=== PATIENT | male | born 1995 | race Caucasian/White ===

== ENCOUNTER 2016-08-25 16:59 | Emergency (ER) | payer BC ==
[2016-08-25 17:06] VITALS: BP 127/74
[2016-08-25] MEDS ORDERED: BSS OPTH.SOL* BTL ONE (17:11)
[2016-08-25] MEDS ORDERED: Fluorescein Sodium TOPICAL* 1 MG TEST ONE (17:11)
[2016-08-25] MEDS ORDERED: Tetracaine 0.5% OPTH.SOL 4 ML* 1 DROP BTL ONE (17:12)
--- NOTE | 2016-08-25 17:43 | UC ---
Eye Complaint HPI - HPI Summary HPI Summary: The patient comes in today for: 1. Right eye pain and watering: Onset: 17 hours ago. Palliative/provocative: Light makes it worse. Blinking make it worse. Quality: Sharp with blinking. Region: Just the right eye. Severity: 8/10 with blinking. Time: Not present when eye is open. Associated symptoms: Event: He states that last night the eye was "irritated" but he went to bed and was able to sleep. He did not wake up at night, but work up in the morning with it painful. He change tires. He thinks that he got some "powder balance" in his eye. 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 * - History of Current Complaint Chief Complaint: UCEye Stated Complaint: RIGHT EYE IRRITATION Time Seen by Provider: 08/25/16 17:35 Hx Obtained From: Patient, Family/Pass Worker - Allergies/Home Medications Allergies/Adverse Reactions: Allergies Allergy/AdvReac Type Severity Reaction Status Date / Time No Known Allergies Allergy Verified 08/25/16 17:06 PMH/Surg Hx/FS Hx/Imm Hx Previously Healthy: Yes - Surgical History Surgical History: Yes Surgery Procedure, Year, and Place: L hand and L foot surgery - Family History Known Family History: Positive: Diabetes Negative: Cardiac Disease - Social History Occupation: Employed Full-time Alcohol Use: Occasionally Substance Use Type: None Smoking Status (MU): Never Smoked Tobacco Type: Smokeless Tobacco Amount Used/How Often: can every two days Have You Smoked in the Last Year: No - Immunization History Most Recent Tetanus Shot: unknown Vaccination Up to Date: Yes Review of Systems Constitutional: Negative Skin: Negative Eyes: Drainage - TEaring. ENT: Negative Respiratory: Negative Cardiovascular: Negative Gastrointestinal: Negative Genitourinary: Negative All Other Systems Reviewed And Are Negative: Yes Physical Exam Triage Information Reviewed: Yes Appearance: Well-Appearing, No Pain Distress, Well-Nourished Vital Signs: Initial Vital Signs Temp 99.7 F 08/25/16 17:03 Pulse 90 08/25/16 17:03 Resp 17 08/25/16 17:03 BP 127/74 08/25/16 17:03 Pulse Ox 98 08/25/16 17:03 Vital Signs Reviewed: Yes Eyes: Positive: Conjunctiva Clear, Other: - Right eye: The cornea is clear. But, there is a black dot about 6 o'clock that I am not able to remove with a Q- tip after numbing his eye. Positive Fluorescein dye in eye. No conjunctival erythema at the limbus. Clear tearing.. Negative: Discharge ENT: Positive: Hearing grossly normal. Negative: Pharyngeal erythema, Nasal congestion, Nasal drainage, TM bulging, TM dull, TM red, Tonsillar swelling, Tonsillar exudate Dental: Negative: Gross Decay/Caries @, Dental Fracture @ Neck: Positive: Supple, Nontender, No Lymphadenopathy. Negative: Nuchal Rigidity Respiratory: Positive: Lungs clear, No respiratory distress, No accessory muscle use. Negative: Chest non-tender, Accessory muscle use, Crackles, Wheezing Cardiovascular: Positive: RRR, No Murmur Abdomen Description: Positive: Nontender, No Organomegaly, Soft. Negative: Distended, Guarding Bowel Sounds: Positive: Present Musculoskeletal: Positive: Strength Intact, ROM Intact, No Edema Neurological: Positive: Alert, Muscle Tone Normal Psychological: Positive: Normal Response To Family, Age Appropriate Behavior, Consolable Skin: Negative: rashes, breakdown Eye Complaint Course/Dx - Course Course Of Treatment: After the right eye was numbed with Tetracaine, multiple attemps at removing the black dot/foreign body was done but the lesions was not removable. Call placed to Dr. Alvarado to see if the patient could be seen at her office tomorrow. Dr. Morales's office was called also. He was paged also. But, no one called me back. Treatment options were explained to the patient and he wanted to go to [facility] ER. - Differential Dx/Diagnosis Differential Diagnosis/HQI/PQRI: Foreign Body, Other - rust ring Provider Diagnoses: Retained foreign body, right cornea. - Physician Notification/Consults Discussed Patient Care With: [facility] Time Discussed With Above Provider: 18:53 Discharge - Discharge Plan Condition: Stable Disposition: HOME Additional Instructions: Please go directly to the [facility] ER. [address] to [place] and get off at exit [address]. Make a right at the bottom of the ramp. [address] is the [facility].
[2016-08-25] MEDS ORDERED: Erythromycin OPTH OINT* APPLIC OINT RIGHT EYE ONE (18:22)
== END 2016-08-25 18:59 | disposition left against medical advice (07) ==
LOC: UCCORT 16:59
DX: T15.01XA Foreign body in cornea, right eye, initial encounter (principal); X58.XXXA Exposure to other specified factors, initial encounter; Y93.9 Activity, unspecified; Y92.9 Unspecified place or not applicable; F17.220 Nicotine dependence, chewing tobacco, uncomplicated
CPT/HCPCS: 99213; A9270-GY; G0463